=== PATIENT | female | born 1960 | race Caucasian/White ===

== ENCOUNTER → 2017-09-08 | Outpatient (CLI) | payer MEDICARE, MEDICAID ==
[2017-03-27 10:22] VITALS: BMI 25.5
[~2017-09-08] MED LIST: ALPR-429 PO; ALPR-448 PO; FAMO1TAB59 PO; FLU60SYR30 IM ONLY; FOLI-68 PO; LACT10SO82 PO; LEVO-3 PO; LEVO-317 PO; NIC10R INH; POTA20TA85 PO; ROPI0.2528 PO; SERT-1 PO; THIA100T62 PO; TRAZ-156 PO
[2017-09-08 14:35] LABS: PLATELET COUNT, AUTOMATED 78 K/uL (150-450)
== END ==
LOC: LAB 06-03 14:22
PROVIDERS: ATTEND Nurse Practitioner Primary Care
DX: R94.5 Abnormal results of liver function studies (principal); Z63.72 Alcoholism and drug addiction in family; D47.3 Essential (hemorrhagic) thrombocythemia; E03.9 Hypothyroidism, unspecified; R30.0 Dysuria
CPT/HCPCS: 36415; 81001; 82040; 82247; 82310; 82374; 82435; 82565; 82947; 84075; 84132; 84155; 84295; 84443; 84450; 84460; 84520; 85025

== ENCOUNTER 2017-11-25 14:36 | Outpatient (RCR) | payer MEDICARE, MEDICAID ==
[2017-03-27 10:22] VITALS: Wt 82.0 kg
[2017-11-19 14:29] VITALS: BP 127/66
[2017-11-19 15:29] LABS: PLATELET COUNT, AUTOMATED 92 K/uL (150-450)
--- NOTE | 2017-11-21 07:36 | [facility] ONCOLOGY NOTE ---
EVENT DATE: November 19, 2017 REFERRING PHYSICIAN: Mary Granados, PAR[employer]IT, [employer]- REASON FOR THE CONSULTATION Evaluation and management of thrombocytopenia. HISTORY OF PRESENT ILLNESS The patient is a 57-year-old female who has history of mesh sling procedure of her urinary bladder followed by urinary incontinence and vaginal bleeding since then. She had a surgical repair after her initial surgery. She is also status post hysterectomy. Patient had a blood count which showed chronic thrombocytopenia, was thought to be due to alcohol. Her CBC on September 08, 2017 showed white count 4400, hemoglobin 15.3, hematocrit 44.9, platelets 78, 000. Patient stopped alcohol intake. The thrombocytopenia was thought to be due to alcoholism, but her platelet count did not improve. Patient was also found to have alcoholic liver cirrhosis with portal hypertension and splenomegaly from that. Her CT scan of the abdomen and pelvis done on March did show enlarged spleen 14.4 cm with evidence of liver cirrhosis and portal hypertension. Patient having deteriorating bleeding from her mesh sling procedure, which is getting worse lately. PAST MEDICAL HISTORY 1. History of alcoholism. 2. Restless legs syndrome. 3. Memory impairment. 4. Alcoholic liver cirrhosis. 5. Splenomegaly. 6. Depression. 7. Hypothyroidism after radioactive iodine therapy for hyperthyroidism. 8. Arthritis. PAST SURGICAL HISTORY 1. Mesh sling bladder procedure. 2. Hysterectomy with one ovary still intact. 3. Cholecystectomy. FAMILY HISTORY Negative for cancer or blood diseases. SOCIAL HISTORY Patient is with three sons. She is on disability currently. She quit smoking four years ago after one pack a day for 40 years. She is alcoholic. She tried to quit, but her last alcohol intake was about three weeks ago. CURRENT MEDICATIONS None, as per patient. ALLERGIES NO KNOWN DRUG ALLERGIES. REVIEW OF SYSTEMS CONSTITUTIONAL: No appetite or weight change. No fever, chills or sweating. No recent infection. HEENT: Ears: No tinnitus or hearing problem. Nose: No nasal discharge or epistaxis. Throat: No sore throat or mouth ulcers. Eyes: No diplopia or visual changes. RESPIRATORY: No shortness of breath. No cough, expectoration or hemoptysis. CARDIOVASCULAR: No chest pain, orthopnea, or paroxysmal nocturnal dyspnea (PND) . No edema. No palpitations. GASTROINTESTINAL: She had nausea. She has also right upper quadrant abdominal pain. GENITOURINARY: No hematuria or dysuria. MUSCULOSKELETAL: She has leg cramps. NEUROLOGICAL: She has tingling and numbness in the hands. She has also headache. HEMATOLOGIC/LYMPHATIC: She bruises easily. She has local vaginal bleeding from her mesh sling procedure. She has weakness, tiredness and fatigue. SKIN: No skin rash or lumps. PSYCHIATRIC: No anxiety or depression. PHYSICAL EXAMINATION GENERAL: Looks stable. Well-developed, well-nourished, and in no acute distress. VITAL SIGNS: Blood pressure 127/66, pulse 87 per minute, respirations 16 per minute, temperature 98, pulse oximetry 93% on room air. HEENT: Head: Atraumatic. No sinus tenderness to palpation. Eyes: No icterus or conjunctivitis. Mouth and throat: No oral thrush or mucositis. NECK: Supple. No cervical or supraclavicular lymphadenopathy. LUNGS: Clear to auscultation and percussion bilaterally. HEART: Regular rate and rhythm. No gallops, murmurs, clicks or rubs. ABDOMEN: Soft and lax. No tenderness. No hepatosplenomegaly. No masses. EXTREMITIES: No cyanosis, clubbing or edema. LYMPHATICS: No peripheral lymphadenopathy. NEUROLOGICAL: Conscious, alert and oriented times three. No focal motor or sensory deficits. PSYCHIATRIC: Mood and affect appear normal. SKIN: No skin rash, bruise or purpuric eruption. ASSESSMENT 1. Thrombocytopenia, could be multifactorial in origin. 2. Alcohol intake is very bone marrow suppressant, which could continue to her thrombocytopenia. Her splenomegaly from alcoholic liver cirrhosis could also contribute to her thrombocytopenia, but nutritional deficiencies and idiopathic thrombocytopenic purpura cannot be ruled out. I am planning to check her CBC today. I am planning also to check her B12, folate, and methylmalonic acid assay. I am planning to check also her platelet-associated antibodies, direct and indirect. With her platelet count around 70,000, I do not think there will be specific treatment required for her low platelets at the moment. I explained that to the patient. Patient agreeable with the plan of management. I am planning to see her next week to discuss the results of her blood work, which will be done today. 3. Alcoholism with alcoholic liver cirrhosis. 4. Splenomegaly due to alcoholism, which could contribute to her low platelet count. PLAN 1. CBC. 2. Vitamin B12 and folic acid level. 3. Methylmalonic acid assay. 4. Platelet-associated antibodies. 5. Patient to return in one week for further evaluation and management. 6. Patient to contact us for any new concern or complaints. AZALEA
[2017-11-25 15:23] VITALS: BP 146/82
--- NOTE | 2017-11-25 20:16 | ONCOLOGY FOLLOW UP NOTE ---
EVENT DATE: November 25, 2017 DIAGNOSES 1. Thrombocytopenia. Could be due to ITP and splenomegaly. 2. Alcoholism. 3. Hypothyroidism after radioactive iodine treatment for hyperthyroidism. 4. Splenomegaly. CHIEF COMPLAINT Patient is here today for followup of her thrombocytopenia. HEMATOLOGY HISTORY The patient is a 57-year-old female who has history of mesh sling procedure of her urinary bladder followed by urinary incontinence and vaginal bleeding since then. She had a surgical repair after her initial surgery. She is also status post hysterectomy. Patient had a blood count which showed chronic thrombocytopenia, was thought to be due to alcohol. Her CBC on September 08, 2017 showed white count 4400, hemoglobin 15.3, hematocrit 44.9, platelets 78, 000. Patient stopped alcohol intake. The thrombocytopenia was thought to be due to alcoholism, but her platelet count did not improve. Patient was also found to have alcoholic liver cirrhosis with portal hypertension and splenomegaly from that. Her CT scan of the abdomen and pelvis done on March did show enlarged spleen 14.4 cm with evidence of liver cirrhosis and portal hypertension. Patient having deteriorating bleeding from her mesh sling procedure, which is getting worse lately. HISTORY OF PRESENT ILLNESS Patient is here today for followup of her thrombocytopenia. She is complaining of shortness of breath, extreme fatigue, but patient said she stopped her thyroid supplement. She has occasional nausea and diarrhea. She has pain in her legs and feet. PAST MEDICAL HISTORY 1. History of alcoholism. 2. Restless legs syndrome. 3. Memory impairment. 4. Alcoholic liver cirrhosis. 5. Splenomegaly. 6. Depression. 7. Hypothyroidism after radioactive iodine therapy for hyperthyroidism. 8. Arthritis. PAST SURGICAL HISTORY 1. Mesh sling bladder procedure. 2. Hysterectomy with one ovary still intact. 3. Cholecystectomy. FAMILY HISTORY Negative for cancer or blood diseases. SOCIAL HISTORY Patient is with three sons. She is on disability currently. She quit smoking four years ago after one pack a day for 40 years. She is alcoholic. She tried to quit, but her last alcohol intake was about three weeks ago. CURRENT MEDICATIONS None, as per patient. ALLERGIES NO KNOWN DRUG ALLERGIES. REVIEW OF SYSTEMS CONSTITUTIONAL: No appetite or weight change. No fever, chills or sweating. No recent infection. HEENT: Ears: No tinnitus or hearing problem. Nose: No nasal discharge or epistaxis. Throat: No sore throat or mouth ulcers. Eyes: No diplopia or visual changes. RESPIRATORY: She is short winded. No cough, expectoration or hemoptysis. CARDIOVASCULAR: No chest pain, orthopnea, or paroxysmal nocturnal dyspnea (PND) . No edema. No palpitations. GASTROINTESTINAL: She has nausea and diarrhea occasionally. GENITOURINARY: No hematuria or dysuria. MUSCULOSKELETAL: She has pain in the legs and feet. NEUROLOGICAL: She has tingling and numbness in the hands. She has also headache. HEMATOLOGIC/LYMPHATIC: She bruises easily. She has local vaginal bleeding from her mesh sling procedure. She is weak, tired and fatigued. SKIN: No skin rash or lumps. PSYCHIATRIC: No anxiety or depression. PHYSICAL EXAMINATION GENERAL: Looks stable. Well-developed, well-nourished, and in no acute distress. VITAL SIGNS: Blood pressure 146/82, pulse 112 per minute, respirations 16 per minute, temperature 98.4, pulse ox 92% on room air. HEENT: Head: Atraumatic. No sinus tenderness to palpation. Eyes: No icterus or conjunctivitis. Mouth and throat: No oral thrush or mucositis. NECK: Supple. No cervical or supraclavicular lymphadenopathy. LUNGS: Clear to auscultation and percussion bilaterally. HEART: Regular rate and rhythm. No gallops, murmurs, clicks or rubs. ABDOMEN: Soft and lax. No tenderness. No hepatosplenomegaly. No masses. EXTREMITIES: No cyanosis, clubbing or edema. LYMPHATICS: No peripheral lymphadenopathy. NEUROLOGICAL: Conscious, alert and oriented times three. No focal motor or sensory deficits. PSYCHIATRIC: Mood and affect appear normal. SKIN: No skin rash, bruise or purpuric eruption. DIAGNOSTIC DATA CBC showed white count 5.1, hemoglobin 15.9, hematocrit 43.9, platelets 92,000. The vitamin B12 is normal at 1063. Methylmalonic acid assay was normal at 0.14. Serum folate was normal at 20. Platelet associated antibodies was positive for the indirect antibodies, but negative for the direct antibodies, suggestive of ITP. ASSESSMENT 1. Thrombocytopenia, could be multifactorial in origin. Most probably due to either ITP plus/minus splenomegaly. Her splenomegaly is due to alcoholic liver cirrhosis, which could contribute to her thrombocytopenia. Her platelet associated antibodies indirect were positive. With her current platelet count of 92,000, there is no indication for treatment at the moment. Patient was advised to avoid trauma and to report any excessive bruising or bleeding, and to report also any surgical procedures in the future to see if the patient will need any help to raise her platelet count prior to a procedure. I am planning to see her in three months with CBC at that time, and the patient will contact us for any concerns. 2. Alcoholism with alcoholic liver cirrhosis. 3. Splenomegaly due to the alcoholic liver cirrhosis. 4. Hypothyroidism after radioactive iodine treatment for hyperthyroidism. PLAN 1. Continue followup. 2. Patient to return in three months with CBC. 3. Patient to contact us for any new concerns or complaints. AZALEA
== END 2018-01-26 13:50 | disposition home or self-care (01) ==
LOC: ONC 14:36
PROVIDERS: ATTEND Internal Medicine
DX: D69.6 Thrombocytopenia, unspecified (principal); R16.1 Splenomegaly, not elsewhere classified; K70.30 Alcoholic cirrhosis of liver without ascites; F10.20 Alcohol dependence, uncomplicated; K76.6 Portal hypertension; Z87.891 Personal history of nicotine dependence; R53.1 Weakness; R53.83 Other fatigue
CPT/HCPCS: 82607; 82746; 83921; 85025; G0463; 86022; 86023; 99202; 99212

== ENCOUNTER 2017-11-29 20:30 | Emergency (ER) | payer MEDICARE, MEDICAID ==
[2017-03-27 10:22] VITALS: Wt 81.6 kg
--- NOTE | 2017-11-29 20:32 | ER Report ---
History and Physical Time Seen By : 20:31 HPI/ROS CHIEF COMPLAINT: ETOH withdrawl? HISTORY OF PRESENT ILLNESS: Patient is a 57-year-old female who is referred to the emergency department by Mikey Sevilla for complaint of possible alcohol abuse , whole body pains and weakness, and anxiety with regard to a neighbor in her development who "makes threats at her". History is difficult as patient is tangential however is is alert and oriented X3. Patient states that she is here because she is anxious with regard to a neighbor who is been making threats to her. When pushed on whether or not she called the police with regard to this person she states that they told her that he has his 1st amendment rights to say what he will. She further states that she didn't have a generalized weakness with getting up and down a flight of stairs. She is also complaining of restless leg syndrome. She denies any current alcohol use and states she did have a binge about 4 weeks ago but has not drank any alcohol since that time. REVIEW OF SYSTEMS: Constitutional: No fever, no chills. Eyes: No discharge. ENT: No sore throat. Cardiovascular: No chest pain, no palpitations. Respiratory: No cough, no shortness of breath. Gastrointestinal: No abdominal pain, no vomiting. Genitourinary: No hematuria. Musculoskeletal: No back pain. Restless legs Skin: No rashes. Neurological: Generalized headache Psychiatric: Patient is tangential. Speech is slightly slurred. No suicidal or homicidal ideation. Patient does have thoughts of anxiety with a report regard to a neighbor that is making threats to her. Allergies: Coded Allergies: No Known Drug Allergies (Unverified , 04/18/17) Hx Smoking: Yes Smoking Status: Current: Every Day Smoker, Light Tobacco Smoker Exposure to Second Hand Smoke?: Yes Hx Substance Use Disorder: No Hx Alcohol Use: Yes Constitutional Vital Sign - Last 24 Hours 11/29/17 11/29/17 11/29/17 11/29/17 20:49 20:51 21:00 21:04 Pulse 86 87 Resp 16 B/P (MAP) 125/69 (87) 125/69 112/61 (78) Pulse Ox 93 92 O2 Delivery Room Air 11/29/17 11/29/17 21:15 21:30 Pulse 80 84 B/P (MAP) 109/56 (73) Pulse Ox 94 90 Physical Exam General/Constitutional: Patient is awake, alert, nontoxic and in no acute respiratory distress. Head: Normocephalic and atraumatic. Eyes: Conjunctival clear, Pupils are equal and reactive to light. Extraocular muscles are intact and symmetrical fatigable horizontal nystgmus. Sclera noted for icteris Ears:External canals are clear. Tympanic membranes are clear with normal landmarks and light reflex. Nares: No rhinorrhea or bleeding. Turbinates are pink and moist. Oropharyngeal: Mucous membranes are moist. There is no pharyngeal erythema or exudate. There are no palatal petechiae. Uvula is midline and symmetrical. Neck: Supple, no adenopathy. Cardiovascular: Heart is regular rate and rhythm without audible murmurs, rubs or gallops. Pulmonary: Lungs are clear to auscultation bilaterally. There are no wheezes, rales, or rhonchi. Chest rise is symmetrical Abdomen: Soft, nontender, no guarding or peritoneal signs. Extremities: No gross deformities, No peripheral cyanosis. Able to move all 4 extremities. Neuro: Alert and oriented X3, Cranial nerves 2 thru 12 are intact and symmetrical. Patient has normal gait. negative for asterixis Skin: No rashes, skin is warm dry and well perfused. Jaundice. Medical Decision Making Data Points Result Diagram: 11/29/17210011/29/172100 Laboratory Hematology Test 11/29/17 20:44 11/29/17 21:01 Urine Color Yellow Urine Clarity Clear Urine pH 7.0 pH (4.8-9.5) Urine Specific Leakey 1.005 Urine Protein Negative mg/dL (NEGATIVE) Urine Glucose (UA) Negative mg/dL (NEGATIVE) Urine Ketones Negative mg/dL (NEGATIVE) Urine Blood Moderate (NEGATIVE) Urine Nitrite Negative (NEGATIVE) Urine Bilirubin Negative (NEGATIVE) Urine Urobilinogen 4.0 mg/dL (0.2-1.9) Urine Leukocyte Esterase Small (NEGATIVE) Urine RBC 16 /HPF (0-2/HPF) Urine WBC 18 /HPF (0-5/HPF) Urine Squamous Epithelial Cells Few /LPF (</=FEW) Urine Bacteria Negative /HPF (NONE-FEW) Urine Mucus None /HPF (NONE-FEW) Urine HCG, Qualitative Negative (NEGATIVE) Urine Opiates Screen Negative Urine Barbiturates Screen Negative Ur Tricyclic Antidepressants Screen Negative Urine Phencyclidine Screen Negative Urine Amphetamines Screen Negative Urine Benzodiazepines Screen Negative Urine Cocaine Screen Negative Urine Cannabinoids Screen Negative Red Blood Count 4.75 M/uL (4.17-5.56) Mean Corpuscular Volume 90.5 fL (80.0-96.0) Mean Corpuscular Hemoglobin 32.3 pg (26.0-33.0) Mean Corpuscular Hemoglobin Concent 35.7 g/dL (32.0-36.0) Red Cell Distribution Width 18.0 % (11.5-14.5) Mean Platelet Volume 7.1 fL (7.2-11.1) Neutrophils (%) (Auto) 68.0 % (39.4-72.5) Lymphocytes (%) (Auto) 19.6 % (17.6-49.6) Monocytes (%) (Auto) 10.6 % (4.1-12.4) Eosinophils (%) (Auto) 1.1 % (0.4-6.7) Basophils (%) (Auto) 0.7 % (0.3-1.4) Nucleated RBC Relative Count (auto) 0.2 /100WBC Neutrophils # (Auto) 3.6 K/uL (2.0-7.4) Lymphocytes # (Auto) 1.0 K/uL (1.3-3.6) Monocytes # (Auto) 0.6 K/uL (0.3-1.0) Eosinophils # (Auto) 0.1 K/uL (0.0-0.5) Basophils # (Auto) 0.0 K/uL (0.0-0.1) Nucleated RBC Absolute Count (auto) 0.01 K/uL Sodium Level 143 mmol/L (137-145) Potassium Level 2.8 mmol/L (3.5-5.0) Chloride Level 106 mmol/L (98-107) Carbon Dioxide Level 25 mmol/L (22-31) Blood Urea Nitrogen 9 mg/dl (7-18) Creatinine 1.30 mg/dl (0.52-1.04) Glomerular Filtration Rate Calc 42.1 Random Glucose 137 mg/dl (75-110) Calcium Level 10.3 mg/dl (8.4-10.2) Magnesium Level 1.3 mg/dl (1.7-2.2) Total Bilirubin 4.7 mg/dl (0.2-1.3) Aspartate Amino Transf (AST/SGOT) 39 U/L (0-35) Alanine Aminotransferase (ALT/SGPT) 35 U/L (0-56) Alkaline Phosphatase 136 U/L (0-126) Total Creatine Kinase 129 U/L (30-135) Troponin I < 0.012 ng/ml Total Protein 7.3 gm/dl (6.3-8.2) Albumin 3.6 g/dl (3.5-5.0) Lipase 303 U/L (23-300) Salicylates Level < 10 mg/L Salicylate Last Dose Date unk Acetaminophen Level < 10 ug/ml Serum Alcohol < 10 mg/dl Chemistry Test 11/29/17 20:44 11/29/17 21:01 Urine Color Yellow Urine Clarity Clear Urine pH 7.0 pH (4.8-9.5) Urine Specific [place]akey 1.005 Urine Protein Negative mg/dL (NEGATIVE) Urine Glucose (UA) Negative mg/dL (NEGATIVE) Urine Ketones Negative mg/dL (NEGATIVE) Urine Blood Moderate (NEGATIVE) Urine Nitrite Negative (NEGATIVE) Urine Bilirubin Negative (NEGATIVE) Urine Urobilinogen 4.0 mg/dL (0.2-1.9) Urine Leukocyte Esterase Small (NEGATIVE) Urine RBC 16 /HPF (0-2/HPF) Urine WBC 18 /HPF (0-5/HPF) Urine Squamous Epithelial Cells Few /LPF (</=FEW) Urine Bacteria Negative /HPF (NONE-FEW) Urine Mucus None /HPF (NONE-FEW) Urine HCG, Qualitative Negative (NEGATIVE) Urine Opiates Screen Negative Urine Barbiturates Screen Negative Ur Tricyclic Antidepressants Screen Negative Urine Phencyclidine Screen Negative Urine Amphetamines Screen Negative Urine Benzodiazepines Screen Negative Urine Cocaine Screen Negative Urine Cannabinoids Screen Negative White Blood Count 5.3 k/uL (4.5-11.0) Red Blood Count 4.75 M/uL (4.17-5.56) Hemoglobin 15.3 g/dL (12.0-16.0) Hematocrit 43.0 % (34.0-47.0) Mean Corpuscular Volume 90.5 fL (80.0-96.0) Mean Corpuscular Hemoglobin 32.3 pg (26.0-33.0) Mean Corpuscular Hemoglobin Concent 35.7 g/dL (32.0-36.0) Red Cell Distribution Width 18.0 % (11.5-14.5) Platelet Count 78 K/uL (150-450) Mean Platelet Volume 7.1 fL (7.2-11.1) Neutrophils (%) (Auto) 68.0 % (39.4-72.5) Lymphocytes (%) (Auto) 19.6 % (17.6-49.6) Monocytes (%) (Auto) 10.6 % (4.1-12.4) Eosinophils (%) (Auto) 1.1 % (0.4-6.7) Basophils (%) (Auto) 0.7 % (0.3-1.4) Nucleated RBC Relative Count (auto) 0.2 /100WBC Neutrophils # (Auto) 3.6 K/uL (2.0-7.4) Lymphocytes # (Auto) 1.0 K/uL (1.3-3.6) Monocytes # (Auto) 0.6 K/uL (0.3-1.0) Eosinophils # (Auto) 0.1 K/uL (0.0-0.5) Basophils # (Auto) 0.0 K/uL (0.0-0.1) Nucleated RBC Absolute Count (auto) 0.01 K/uL Glomerular Filtration Rate Calc 42.1 Calcium Level 10.3 mg/dl (8.4-10.2) Magnesium Level 1.3 mg/dl (1.7-2.2) Total Bilirubin 4.7 mg/dl (0.2-1.3) Aspartate Amino Transf (AST/SGOT) 39 U/L (0-35) Alanine Aminotransferase (ALT/SGPT) 35 U/L (0-56) Alkaline Phosphatase 136 U/L (0-126) Total Creatine Kinase 129 U/L (30-135) Troponin I < 0.012 ng/ml Total Protein 7.3 gm/dl (6.3-8.2) Albumin 3.6 g/dl (3.5-5.0) Lipase 303 U/L (23-300) Salicylates Level < 10 mg/L Salicylate Last Dose Date unk Acetaminophen Level < 10 ug/ml Serum Alcohol < 10 mg/dl Toxicology Test 11/29/17 20:44 11/29/17 21:01 Urine Opiates Screen Negative Urine Barbiturates Screen Negative Ur Tricyclic Antidepressants Screen Negative Urine Phencyclidine Screen Negative Urine Amphetamines Screen Negative Urine Benzodiazepines Screen Negative Urine Cocaine Screen Negative Urine Cannabinoids Screen Negative Salicylates Level < 10 mg/L Salicylate Last Dose Date unk Acetaminophen Level < 10 ug/ml Serum Alcohol < 10 mg/dl Urinalysis Test 11/29/17 20:44 Urine Color Yellow Urine Clarity Clear Urine pH 7.0 pH (4.8-9.5) Urine Specific [place]y 1.005 Urine Protein Negative mg/dL (NEGATIVE) Urine Glucose (UA) Negative mg/dL (NEGATIVE) Urine Ketones Negative mg/dL (NEGATIVE) Urine Blood Moderate (NEGATIVE) Urine Nitrite Negative (NEGATIVE) Urine Bilirubin Negative (NEGATIVE) Urine Urobilinogen 4.0 mg/dL (0.2-1.9) Urine Leukocyte Esterase Small (NEGATIVE) Urine RBC 16 /HPF (0-2/HPF) Urine WBC 18 /HPF (0-5/HPF) Urine Squamous Epithelial Cells Few /LPF (</=FEW) Urine Bacteria Negative /HPF (NONE-FEW) Urine Mucus None /HPF (NONE-FEW) Urine HCG, Qualitative Negative (NEGATIVE) ED Course/Re-evaluation ED Course 11/29/2017 9:34:55 pm patient found to have elevated bilirubin of 4.7 in August 2017 her bilirubin was 2.2. Also found to have potassium of 2.8 as well as magnesium of 1.3. We'll give 1 g of magnesium IV followed by Vincent murdock. We will obtain ultrasound of the liver secondary to increasing bilirubin levels. We 'll do CT scan of the head for the weakness. Disposition pending studies 11/29/2017 9:42:15 pm patient called me to the room as she would like to leave prior to the complete of her workup. I explained to the patient that we still have blood work pending as well as ultrasound and CT of her head to evaluate for her symptoms which include weakness and dizziness. Patient states that she is anxious and tired and now wants to go home. I explained that we still do not have an explanation for the elevation of her bilirubin my concern is that she may have worsening liver failure further that she has some electrolyte abnormalities that should be corrected. Patient still wants to leave. She is able to make her own decisions and is competent to direct her own medical care. We will have the patient sign out against medical advice. She has agreed to take potassium prior to leaving. I will give instructions for patient to follow up with her primary care provider is that she needs continued workup as an outpatient for possible worsening liver failure. Decision to Disposition Date: Nov 29, 2017 Decision to Disposition Time: 21:48 Depart Departure Latest Vital Signs Vital Signs Date Time Temp Pulse Resp B/P (MAP) Pulse Ox O2 Delivery O2 Flow Rate FiO2 11/29/17 21:30 84 109/56 (73) 90 11/29/17 20:51 16 Room Air Impression: Primary Impression: Jaundice Additional Impression: Hypokalemia Condition: Condition Unchanged Disposition: AGAINST MED ADV / DISCONT CARE Referrals: LETITIA ZARAGOZA DNP, [facility] (PCP) 1 Day for further evaluation of possible worsening cirrhosis Departure Forms: ER Transition Record, Medications Reconciliation, Patient Portal Information Patient Instructions: Cirrhosis (DC), Hypokalemia (ED), Weakness (ED) Additional Instructions: We have decided to leave against medical advice tonight. Your medical evaluation in the emergency department was not completed at the time he decided to leave. It is highly recommended to schedule follow-up appointment as soon as possible with her primary care provider to reevaluate for possible worsening liver failure. You should avoid alcohol at all times. He should take all of your outpatient medications as directed. You should restart your lactulose as directed. If at any point ypu decide that you wish to continue your medical evaluation, you may return to the emergency department. Problem Qualifiers HAILEE DEVI MD Nov 29, 2017 20:32
[2017-11-29 21:12] LABS: PLATELET COUNT, AUTOMATED 78 K/uL (150-450)
[2017-11-29 21:30] VITALS: BP 109/56
[2017-11-29] MEDS ORDERED: MAGNESIUM SUL/D5W* 1 GM/100 ML 100 ML IVPB ONE (21:30)
--- NOTE | 2017-11-29 21:31 | EKG ---
FACILITY: [facility] PATIENT NAME: SARABJIT GOMEZ : [id number] MR: [id number] V: [id number] EXAM DATE: ORDERING PHYSICIAN: HAILEE DEVI TECHNOLOGIST: REINA Acevedo Reason : CARDIAC Blood Pressure : / mmHG Vent. Rate : 091 BPM Atrial Rate : 091 BPM P-R Int : 172 ms QRS Dur : 094 ms QT Int : 388 ms P-R-T Axes : 044 043 058 degrees QTc Int : 477 ms Normal sinus rhythm Normal ECG When compared with ECG of 26-MAR-2017 15:40, ST no longer depressed in Anterior leads T wave inversion no longer evident in Inferior leads T wave inversion no longer evident in Lateral leads QT has lengthened Confirmed by MARILEE GONZALES ([id number]) on 11/30/2017 7:09:09 AM Referred By: Confirmed By:MARILEE GONZALES
[2017-11-29] MEDS ORDERED: POTASSIUM CHL 20 MEQ TABCR PO SCH (21:45)
== END 2017-11-29 21:59 | disposition left against medical advice (07) ==
LOC: ER 20:44
DX: R17 Unspecified jaundice (principal); E87.6 Hypokalemia; F17.210 Nicotine dependence, cigarettes, uncomplicated
CPT/HCPCS: 80305; 81001; 81025; 82550; 83690; 83735; 83930; 84443; 84484; 85025; 93005; 99284; A9270; G0480; 80320; 80329; 82040; 82247; 82310; 82374; 82435; 82565; 82947; 84075; 84132; 84155; 84295; 84450; 84460; 84520